=== PATIENT | male | born 1960 | race Caucasian/White ===

== ENCOUNTER → 2016-09-11 | Outpatient (CLI) | payer BC ==
[2016-09-11 12:02] LABS: BASO % 0.2 %; BASO ABS # 0.01 K/uL (0-0.2); COMPLETE YES; EOS % 1.8 %; HEMATOCRIT 39.2 % (42-52); IG% 0.2 %; LYMPH % 28.3 %; LYMPH ABS # 1.38 K/uL (1.2-3.4); MEAN CELL VOLUME 90.3 fL (80-100); MEAN CORPUSCULAR HEMOGLOBIN 31.8 pg (25-34); MEAN CORPUSCULAR HGB CONC 35.2 g/dl (32-36); MEAN PLATELET VOLUME 9.4 fL (7.4-10.4); MONO % 9.7 %; NEUT % 59.8 %; PLATELET COUNT 247 K/uL (130-400); RED BLOOD COUNT 4.34 M/uL (4.7-6.1); WHITE BLOOD COUNT 4.87 K/uL (4.8-10.8)
[2016-09-11 12:26] LABS: ALT/SGPT 43 U/L (12-78); AST/SGOT 26 U/L (15-37)
[2016-09-11 12:37] LABS: ALKALINE PHOSPHATASE 59 U/L (45-117)
== END | disposition home or self-care (01) ==
LOC: C.LAB1850 10:21
PROVIDERS: ATTEND Internal Medicine Rheumatology
DX: M05.771 Rheumatoid arthritis with rheumatoid factor of right ankle and foot without organ or systems involvement (principal); M05.772 Rheumatoid arthritis with rheumatoid factor of left ankle and foot without organ or systems involvement; R76.8 Other specified abnormal immunological findings in serum; Z79.899 Other long term (current) drug therapy

== ENCOUNTER → 2017-01-11 | Outpatient (CLI) | payer BC ==
[2017-01-11 12:13] LABS: BASO % 0.4 %; BASO ABS # 0.02 K/uL (0-0.2); COMPLETE YES; EOS % 2.9 %; HEMATOCRIT 42.3 % (42-52); IG% 0.4 %; LYMPH % 31.7 %; LYMPH ABS # 1.54 K/uL (1.2-3.4); MEAN CELL VOLUME 94.6 fL (80-100); MEAN CORPUSCULAR HEMOGLOBIN 32.7 pg (25-34); MEAN CORPUSCULAR HGB CONC 34.5 g/dl (32-36); MEAN PLATELET VOLUME 9.5 fL (7.4-10.4); MONO % 10.9 %; NEUT % 53.7 %; PLATELET COUNT 277 K/uL (130-400); RED BLOOD COUNT 4.47 M/uL (4.7-6.1); WHITE BLOOD COUNT 4.86 K/uL (4.8-10.8)
[2017-01-11 12:29] LABS: ALT/SGPT 39 U/L (12-78); AST/SGOT 27 U/L (15-37); CREATININE 0.99 mg/dl (0.60-1.40)
== END | disposition home or self-care (01) ==
LOC: C.LAB1850 10:05
PROVIDERS: ATTEND Internal Medicine Rheumatology
DX: M05.771 Rheumatoid arthritis with rheumatoid factor of right ankle and foot without organ or systems involvement (principal); M05.772 Rheumatoid arthritis with rheumatoid factor of left ankle and foot without organ or systems involvement; M05.741 Rheumatoid arthritis with rheumatoid factor of right hand without organ or systems involvement; M05.742 Rheumatoid arthritis with rheumatoid factor of left hand without organ or systems involvement

== ENCOUNTER → 2017-05-17 | Outpatient (CLI) | payer BC ==
[2017-05-17 12:06] LABS: BASO % 0.4 %; BASO ABS # 0.02 K/uL (0-0.2); COMPLETE YES; EOS % 2.6 %; HEMATOCRIT 42.6 % (42-52); IG% 0.2 %; LYMPH % 30.7 %; LYMPH ABS # 1.65 K/uL (1.2-3.4); MEAN CELL VOLUME 93.8 fL (80-100); MEAN CORPUSCULAR HEMOGLOBIN 32.2 pg (25-34); MEAN CORPUSCULAR HGB CONC 34.3 g/dl (32-36); MEAN PLATELET VOLUME 9.6 fL (7.4-10.4); MONO % 9.3 %; NEUT % 56.8 %; PLATELET COUNT 225 K/uL (130-400); RED BLOOD COUNT 4.54 M/uL (4.7-6.1); WHITE BLOOD COUNT 5.37 K/uL (4.8-10.8)
[2017-05-17 12:17] LABS: ALT/SGPT 42 U/L (12-78); AST/SGOT 25 U/L (15-37); CREATININE 1.08 mg/dl (0.60-1.40)
[2017-05-17 12:20] LABS: ALKALINE PHOSPHATASE 59 U/L (45-117)
== END | disposition home or self-care (01) ==
LOC: C.LAB1850 10:16
PROVIDERS: ATTEND Internal Medicine Rheumatology
DX: M05.771 Rheumatoid arthritis with rheumatoid factor of right ankle and foot without organ or systems involvement (principal); M05.772 Rheumatoid arthritis with rheumatoid factor of left ankle and foot without organ or systems involvement; Z51.81 Encounter for therapeutic drug level monitoring; Z79.899 Other long term (current) drug therapy

== ENCOUNTER → 2017-08-19 | Outpatient (CLI) | payer BC ==
[2017-08-19 15:52] LABS: BASO % 0.4 %; BASO ABS # 0.03 K/uL (0-0.2); EOS % 1.1 %; EOS ABS # 0.09 K/uL (0-0.5); HEMATOCRIT 41.6 % (42-52); HEMOGLOBIN 14.6 g/dL (14.0-18.0); IG# 0.01 K/uL (0.00-0.02); LYMPH % 20.8 %; LYMPH ABS # 1.65 K/uL (1.2-3.4); MEAN CELL VOLUME 91.2 fL (80-100); MEAN CORPUSCULAR HGB CONC 35.1 g/dl (32-36); MEAN PLATELET VOLUME 9.5 fL (7.4-10.4); MONO % 7.7 %; MONO ABS # 0.61 K/uL (0.11-0.59); NEUT % 69.9 %; NEUT ABS # 5.54 K/uL (1.4-6.5); PLATELET COUNT 265 K/uL (130-400); RED CELL DISTRIBUTION WIDTH SD 43.1 fL (36.4-46.3); WHITE BLOOD COUNT 7.93 K/uL (4.8-10.8)
[2017-08-19 16:23] LABS: ALBUMIN 4.2 gm/dl (3.4-5.0); ALT/SGPT 37 U/L (12-78); AST/SGOT 26 U/L (15-37); CREATININE 1.27 mg/dl (0.60-1.40)
[2017-08-19 16:25] LABS: ALKALINE PHOSPHATASE 66 U/L (45-117); TOTAL PROTEIN 7.8 gm/dl (6.4-8.2)
== END | disposition home or self-care (01) ==
LOC: C.LAB1850 14:23
PROVIDERS: ATTEND Internal Medicine Rheumatology
DX: M05.741 Rheumatoid arthritis with rheumatoid factor of right hand without organ or systems involvement (principal); M05.742 Rheumatoid arthritis with rheumatoid factor of left hand without organ or systems involvement